=== PATIENT | male | born 1935 | race African-American/Black ===

== ENCOUNTER 2016-10-30 09:22 | Day surgery (SDC) | payer MEDICARE, OTHER ==
[~2016-10-30] VITALS: Ht 165.1 cm; Wt 48.6 kg
[2016-10-30] VITALS (11 sets, daily range): BP systolic 114–182; BP diastolic 64–79; PULSE 62–92; RESP 11–18; Ht 165.1 cm; Wt 48.6 kg
[2016-10-30] MEDS ORDERED: AMLO5TAB4 PO (10:01)
[2016-10-30] MEDS ORDERED: LABE100T3 PO (10:01)
[2016-10-30] MEDS ORDERED: FOLI0.4T2 PO (10:02)
[2016-10-30] MEDS ORDERED: HYDR-3672 PO (10:02)
[2016-10-30] MEDS ORDERED: CHOL400T10 PO (10:03)
[2016-10-30] MEDS ORDERED: CNC30T PO (10:04)
[2016-10-30] MEDS ORDERED: LACT10SO5 PO (10:06)
[2016-10-30] MEDS ORDERED: NIFEdipine 10 MG CAP GTB ONE (10:30)
[2016-10-30] MEDS ORDERED: BUPIVACAINE 0.5% (SDV) 30 ML INJ ONE (10:37)
[2016-10-30] MEDS ORDERED: MUPIROCIN 2% 15 GM CR ONE (10:37)
[2016-10-30] MEDS ORDERED: KETOROLAC 30 MG INJ IV PRN (11:00)
[2016-10-30] MEDS ORDERED: MEPERIDINE 25 MG INJ IV PRN (11:00)
[2016-10-30] MEDS ORDERED: EPHEDrine SULFATE 50 MG/5 ML SYG IV PRN (11:00)
[2016-10-30] MEDS ORDERED: LABETALOL HCL 20MG INJ IV PRN (11:00)
[2016-10-30] MEDS ORDERED: OXYCODONE/ACETAMINOPHEN (5/325) TAB PO PRN ×2 (11:00)
[2016-10-30] MEDS ORDERED: DIPHENHYDRAMINE 50 MG INJ IV PRN (11:00)
[2016-10-30] MEDS ORDERED: HYDROmorphONE (0.2 MG/ML) 10ML SYG IV PRN ×2 (11:00)
[2016-10-30] MEDS ORDERED: hydrALAzine 20 MG INJ IV PRN (11:00)
[2016-10-30] MEDS ORDERED: FENTAnyl 50 MCG/ML VIAL IV PRN ×3 (11:00)
[2016-10-30] MEDS ORDERED: ONDANSETRON 4 MG INJ IV PRN (11:00)
--- NOTE | 2016-10-30 11:07 | HPN ---
Date/Time of Note Date/Time of Note DATE: 10/30/16 TIME: 11:07 Interval H&P Admission Note Pt. seen H&P reviewed: No system changes HAKEEM ROMERO DPM Oct 30, 2016 11:07
[2016-10-30] MEDS ORDERED: PROPOFOL 60 ML ONE (11:18)
[2016-10-30] MEDS ORDERED: LIDOCAINE 2% (SDV) 5 ML INJ ONE (11:18)
[2016-10-30] MEDS ORDERED: FENTAnyl 50 MCG/ML VIAL ONE (11:21)
[2016-10-30] MEDS ORDERED: MIDAZOLAM 1 MG/ML 2 ML INJ ONE (11:29)
[2016-10-30] MEDS ORDERED: CEFAZOLIN 1 GM INJ ONE (11:33)
[2016-10-30] MEDS ORDERED: LIDOCAINE 2% (MDV) 20 ML INJ INJ ONE (11:49)
--- NOTE | 2016-10-30 12:33 | OPPN ---
Date/Time of Note Date/Time of Note DATE: 10/30/16 TIME: 12:32 Operative Report Preoperative Diagnosis Right hallux onychomycosis Right hallux pain Onychodystrophy right hallux Postoperative Diagnosis Right hallux onychomycosis Right hallux pain Onychodystrophy right hallux Operation/Procedure Performed Right hallux total toenail avulsion Surgical matricectomy right hallux Provider: HAKEEM ROMERO DPM Anesthesia Type: MAC Estimated blood loss: minimal Transfusion Required: no Specimens Toenail and nail matrix Grafts/Implants: none Complications: no HAKEEM ROMERO DPM Oct 30, 2016 12:33
--- NOTE | 2016-10-30 12:34 | OPR ---
Date/Time of Note Date/Time of Note DATE: 10/30/16 TIME: 12:34 Operative Report Procedure Date: Oct 30, 2016 Preoperative Diagnosis Right second toe gangrene Right foot abscess Open wound right foot Peripheral vascular disease Diabetes mellitus Peripheral neuropathy Postoperative Diagnosis Right second toe gangrene Right foot abscess Open wound right foot Peripheral vascular disease Diabetes mellitus Peripheral neuropathy Surgeon: HAKEEM ROMERO DPM Anesthesia Type: MAC Estimated Blood Loss: minimal Transfusion Required: no Specimens Right second toe Grafts/Implants: none Complications: no Pt Condition Post Procedure: stable Disposition: PACU Indications This is a pleasant 81-year-old male patient who is been suffering with an infection in the right foot along with second toe gangrene and deep abscess requiring amputation of the right second toe and debridement. Risks and complications of this type of surgery was discussed with patient in great detail. Family was present during the discussion. Patient acknowledges understanding of discussion. An informed consent was obtained, signed and placed in the chart. No guarantee or warranty was given or implied as to the outcome of the procedure either in verbal or written form. Operative\Procedure Findings Open wound plantar right foot with gangrenous right second toe. Deep abscess of the right forefoot. Severe peripheral vascular disease of the right lower extremity. Procedure Description Patient was then taken to the operating room and was placed on the operating table in the supine position. Patient was placed under general anesthesia. The right foot was scrubbed, prepped and draped in usual aseptic manner. Attention was directed to the right foot second toe. Gangrenous second toe was found. The second toe was disarticulated using sharp #15 blade at the level of the second metatarsal phalangeal joint. The toe was then passed to the back table. Necrotic soft tissue was sharply debrided to bleeding tissue. Plantar open wound was also sharply debrided to bleeding tissue. There was a full communication from the plantar wound into the second toe area. There was purulent drainage that was drained. Significant amount of sterile normal saline and bacitracin was used for irrigation using pulse irrigation technique. The wound was then packed with iodoform packing. Sterile dressing was applied. Postop injection of 0.5% Marcaine plain was given. The patient tolerated the procedure and anesthesia well. He was transferred to the recovery room with vital signs stable and vascular status intact to the right foot. The patient will be sent back to the floor after postoperative monitoring. Patient will be followed in-house. HAKEEM ROMERO DPM Oct 30, 2016 12:34
[2016-10-30] MEDS ORDERED: LIDOCAINE 2% (MDV) 20 ML INJ ONE (12:39)
== END 2016-10-30 14:13 | disposition home or self-care (01) ==
LOC: SDS 09:22
PROVIDERS: ATTEND Podiatrist Foot & Ankle Surgery
DX: L85.1 Acquired keratosis [keratoderma] palmaris et plantaris (principal); B35.1 Tinea unguium; I10 Essential (primary) hypertension
CPT/HCPCS: 11750; 88304; J0690; J2250; J3010